=== PATIENT | female | born 1990 | race Caucasian/White ===

== ENCOUNTER 2022-09-30 17:36 | Emergency (ER) | payer BC, OTHER, SELFPAY ==
[2022-09-30 17:43] VITALS: BP 122/81; PULSE 87; RESP 18; O2SAT 97; BMI 28.2
[2022-09-30 18:00] VITALS: BP 121/81; PULSE 87; RESP 20; O2SAT 97; BMI 28.1
--- NOTE | 2022-09-30 18:46 | EXP.UTC ---
Discharge Plan Disposition Patient Disposition: Home, Self-Care Condition: Good Prescriptions Prescriptions: New Cortisporin-TC 3.3-3-10-0.5 mg/mL drops,suspension 4 drp otic (ear) TID 7 Days Qty: 10 0RF Rx Instructions: in affected ear No Action bupropion HCl 150 mg Tablet Sustained-Release 12 Hr 150 mg PO DAILY venlafaxine 75 mg Tablet 75 mg PO DAILY Referrals Follow up/Referrals: Provider,MD Raquel [Primary Care Provider] - See instructions Brendan Finch MD [Physician] - See instructions Roberto Navas MD [Physician] - See instructions Kennedy Curry III, MD [Staff Physician] - See instructions Activity Restrictions/Add. Instructions Additional Instructions/Restrictions: Use drops as prescribed FOllow up with Family Doctor or ENT if no improvement or any worsening of symptoms Return if needed Over the coutner Motrin and/or Tylenol as directed on package for pain Straight to ER if any life threatening symptoms Clinical Impressions Clinical Impression: Swimmer's ear Stand Alone Forms Stand Alone Forms: Work/School Release Instructions Patient Instructions: How to Instill Ear Drops, Otitis Externa, DI for Otitis Externa Discharge ED Provider: Sanam Nelson [facility] General Stated complaint: left ear pain Mode of Arrival: Ambulatory Source of Information: Patient Limitations: No Limitations Time Seen by Provider: 09/30/22 18:47 Description of Symptoms (Recalled from Triage Doc. by RN): ear pain water trapped in ear over 24 hours HEENT Symptoms (Recalled from RN notes): Yes Resp Symptoms (Recalled from RN notes): No Skin Symptoms (Recalled from RN notes): No MS Symptoms (Recalled from RN notes): No Functional Status (Recalled from RN notes): n/a History of Present Illness Provider Complaint: Patient states that she recently went swimming and feels like she may have water trapped in her ear States that she has been having pain in her left ear since she went swimming that has continued to get worse States that today her ear was hurting worse so she came in to get it checked Related Data Home Medications Medication Instructions Recorded Confirmed bupropion HCl 150 mg tablet,12 hr 150 mg PO DAILY Depression 09/30/22 09/30/22 sustained-release venlafaxine 75 mg tablet 75 mg PO DAILY Depression 09/30/22 09/30/22 Previous Rx's Medication Instructions Recorded njxjycbk-qcsjia-RO-thonzonm 3.3 4 drp otic (ear) TID 7 days #10 mL 09/30/22 mg-3 mg-10 mg-0.5 mg/mL ear drops,susp (Cortisporin-TC) Allergies Allergy/AdvReac Type Severity Reaction Status Date / Time No Known Allergies Allergy Verified 09/30/22 19:01 Worker's Comp Is this a Worker's Comp case?: No [facility] Disclaimer: The information contained in this section may have been updated after the patient was seen, as this information can be updated by other users. Social History Smoking Status: Unknown if ever smoked alcohol intake: never current occupational status: employed Travel in the last 8 weeks: None ROS Obtained: Yes All systems reviewed & no additional complaints except as documented and Yes Systems reviewed as appropriate & no additional complaints except as documented Constitutional Constitutional: Reports system reviewed and no additional complaints, except as documented and Reports as per HPI ENT Ears, Nose, Mouth, and Throat: Reports system reviewed and no additional complaints, except as documented, Reports as per HPI and Reports otalgia Cardiovascular Cardiovascular: Reports system reviewed and no additional complaints, except as documented and Reports as per HPI Respiratory Respiratory: Reports system reviewed and no additional complaints, except as documented and Reports as per HPI Gastrointestinal Gastrointestingal: Reports system reviewed and no additional complaints, except as documented and as per HPI Neurologic Neurologic: Reports system reviewed and no add
[2022-09-30 19:19] VITALS: BP 121/81; PULSE 87; RESP 20; TEMP 36.9; O2SAT 97
== END 2022-09-30 19:20 | disposition home or self-care (01) ==
PROVIDERS: Emergency Provider Nurse Practitioner
DX: H60.332 Swimmer's ear, left ear (principal)
CPT/HCPCS: 99212; 99213; G0463

== ENCOUNTER 2023-07-24 09:51 | Emergency (ER) | payer BC, OTHER, SELFPAY ==
[2023-07-24 10:05] VITALS: BP 106/66; PULSE 74; RESP 22; TEMP 37; O2SAT 96; BMI 29.0
--- NOTE | 2023-07-24 10:16 | EXP.UTC ---
Discharge Plan Disposition Patient Disposition: Home, Self-Care Condition: Good Prescriptions Prescriptions: New methylprednisolone [Medrol (Chris)] 4 mg tablets,dose pack See Rx Instructions .Route .COMPLEX 6 Days Qty: 21 0RF Rx Instructions: taper pack; amoxicillin-pot clavulanate 875-125 mg Tablet 1 tab PO Q12H Qty: 20 0RF guaifenesin [Mucinex] 600 mg tablet extended release 12hr 600 mg PO BID PRN (Reason: cough) Qty: 20 0RF No Action bupropion HCl 150 mg Tablet Sustained-Release 12 Hr 150 mg PO DAILY venlafaxine 75 mg Tablet 75 mg PO DAILY Cortisporin-TC 3.3-3-10-0.5 mg/mL drops,suspension 4 drp otic (ear) TID 7 Days Qty: 10 0RF Rx Instructions: in affected ear Referrals Follow up/Referrals: Provider,Referral, MD [Primary Care Provider] - See instructions Activity Restrictions/Add. Instructions Additional Instructions/Restrictions: *Monitor Temp, Over the counter Motrin or Tylenol as directed/as needed Tylenol every 4 hours and Motrin every 6 hours (as long as your family doctor has told you that you can take it) for fever or pain. and straight to ER if unable to lower temp less than 101.0 after medication given *Warm salt water gargles may help to soothe the throat *Throat Lozenges? *Warm fluids like tea with honey may help to soothe the throat? *Sleep elevated *Humidifier/Vaporizer *Take medication as prescribed Follow up IMMEDIATELY for new or worsening symptoms or no Noticeable improvement over the next 48-72 hours. 911 for difficulty breathing or swallowing Clinical Impressions Clinical Impression: Sinusitis Qualifiers: Sinusitis location: unspecified location Chronicity: unspecified Qualified Code(s): J32.9 - Chronic sinusitis, unspecified Instructions Patient Instructions: Sinusitis, DI for Sinusitis Discharge ED Provider: Sanam Nelson [facility] HPI General Stated complaint: congestion, sinus pressure Time Seen by Provider: 07/24/23 10:16 History of Present Illness Provider Complaint: Patient states that she has been having sinus pain and pressure for about 2 weeks now and now she is having pressure behind her eyes and even her teeth feel sore so today she came in to see if she could get something to help Related Data Home Medications Medication Instructions Recorded Confirmed bupropion HCl 150 mg tablet,12 hr 150 mg PO DAILY Depression 09/30/22 09/30/22 sustained-release venlafaxine 75 mg tablet 75 mg PO DAILY Depression 09/30/22 09/30/22 Previous Rx's Medication Instructions Recorded etlcgzic-gdwafx-MC-thonzonm 3.3 4 drp otic (ear) TID 7 days #10 mL 09/30/22 mg-3 mg-10 mg-0.5 mg/mL ear drops,susp (Cortisporin-TC) amoxicillin 875 mg-potassium 1 tab PO Q12H #20 tabs 07/24/23 clavulanate 125 mg tablet guaifenesin 600 mg tablet, 600 mg PO BID PRN cough #20 tabs 07/24/23 extended release 12 hr (Mucinex) methylprednisolone 4 mg tablets in See Rx Instructions .Route 07/24/23 a dose pack (Medrol (Chris)) .COMPLEX 6 days #21 tabs Allergies Allergy/AdvReac Type Severity Reaction Status Date / Time No Known Allergies Allergy Verified 09/30/22 19:01 [facility] Disclaimer: The information contained in this section may have been updated after the patient was seen, as this information can be updated by other users. Medical History (Updated 07/24/23 @ 10:20 by Sarah Pillai RN) Anxiety Depression Migraine Surgical History (Updated 07/24/23 @ 10:20 by Sarah Pillai RN) History of section History of tympanostomy tube placement Social History (Updated 09/30/22 @ 19:14 by Sanam Nelson APRN) Smoking Status: Unknown if ever smoked alcohol intake: never current occupational status: employed Travel in the last 8 weeks: None ROS Obtained: Yes All systems reviewed & no additional complaints except as documented and Yes Systems reviewed as appropriat
[2023-07-24 10:22] VITALS: BP 106/66; PULSE 74; RESP 22; TEMP 37; O2SAT 96
== END 2023-07-24 10:23 | disposition home or self-care (01) ==
PROVIDERS: Emergency Provider Nurse Practitioner
DX: J01.90 Acute sinusitis, unspecified (principal); R09.81 Nasal congestion
CPT/HCPCS: 99212; 99214; G0463

== ENCOUNTER 2023-08-11 08:15 | Emergency (ER) | payer BC, OTHER, SELFPAY ==
[2023-08-11 08:40] VITALS: BP 117/73; PULSE 77; RESP 21; TEMP 36.8; O2SAT 96; BMI 28.9
--- NOTE | 2023-08-11 08:46 | EXP.UTC ---
Discharge Plan Disposition Patient Disposition: Home, Self-Care Condition: Good Prescriptions Prescriptions: New amoxicillin [amoxicillin] 500 mg tablet 500 mg PO TID 10 Days Qty: 30 0RF No Action methylprednisolone [Medrol (Chris)] 4 mg tablets,dose pack See Rx Instructions .Route .COMPLEX 6 Days Qty: 21 0RF Rx Instructions: taper pack; amoxicillin-pot clavulanate 875-125 mg Tablet 1 tab PO Q12H Qty: 20 0RF guaifenesin [Mucinex] 600 mg tablet extended release 12hr 600 mg PO BID PRN (Reason: cough) Qty: 20 0RF trazodone 100 mg Tablet 100 mg PO DAILY sertraline 25 mg Tablet 25 mg PO DAILY sertraline 50 mg Tablet 50 mg PO DAILY Referrals Follow up/Referrals: Provider,Referral, MD [Primary Care Provider] - See instructions Activity Restrictions/Add. Instructions Additional Instructions/Restrictions: Drink plenty of fluids. Take tylenol or ibuprofen for pain or fever. Take the medications as directed. Follow up with your regular doctor. GO TO THE ER FOR ANY WORSENING SYMPTOMS Throw your tooth brush away and get a new one. Clinical Impressions Clinical Impression: Pharyngitis Stand Alone Forms Stand Alone Forms: Work/School Release Instructions Patient Instructions: DI for Strep Throat, Strep Throat Discharge ED Provider: Dalton Godoy [facility] [place] General Stated complaint: congestion, sore throat, body aches, eye drainage Time Seen by Provider: 08/11/23 08:45 History of Present Illness Provider Complaint: He states that he has had a very sore throat for the past 2 days. Related Data Home Medications Medication Instructions Recorded Confirmed sertraline 25 mg tablet 25 mg PO DAILY 07/24/23 07/24/23 sertraline 50 mg tablet 50 mg PO DAILY 07/24/23 07/24/23 trazodone 100 mg tablet 100 mg PO DAILY 07/24/23 07/24/23 Previous Rx's Medication Instructions Recorded amoxicillin 875 mg-potassium 1 tab PO Q12H #20 tabs 07/24/23 clavulanate 125 mg tablet guaifenesin 600 mg tablet, 600 mg PO BID PRN cough #20 tabs 07/24/23 extended release 12 hr (Mucinex) methylprednisolone 4 mg tablets in See Rx Instructions .Route 07/24/23 a dose pack (Medrol (Chris)) .COMPLEX 6 days #21 tabs amoxicillin 500 mg tablet 500 mg PO TID 10 days #30 tabs 08/11/23 Allergies Allergy/AdvReac Type Severity Reaction Status Date / Time No Known Allergies Allergy Verified 09/30/22 19:[address] [facility] Disclaimer: The information contained in this section may have been updated after the patient was seen, as this information can be updated by other users. Medical History (Updated 08/11/23 @ 08:51 by Dalton Godoy APRN) Anxiety Depression Migraine Surgical History (Updated 07/24/23 @ 10:20 by Sarah Pillai RN) History of section History of tympanostomy tube placement Social History (Updated 09/30/22 @ 19:14 by Sanam Nelson APRN) Smoking Status: Unknown if ever smoked alcohol intake: never current occupational status: employed Travel in the last 8 weeks: None ROS Obtained: Yes All systems reviewed & no additional complaints except as documented Constitutional Constitutional: Reports chills and Reports fever(s) Eyes Eyes: Denies eye discharge ENT Ears, Nose, Mouth, and Throat: Reports as per HPI Cardiovascular Cardiovascular: Denies chest pain Respiratory Respiratory: Denies chest congestion and Reports cough Gastrointestinal Gastrointestingal: Reports nausea; Denies abdominal pain, constipation, cramping, diarrhea or vomiting Musculoskeletal Musculoskeletal: Denies arthralgias Integumentary/Breasts Skin/Breast: Denies rash Neurologic Neurologic: Denies paresthesias Physical Exam General General appearance: alert and in no apparent distress Head Head exam: atraumatic, normocephalic and normal inspection Eye Eye exam: Present normal appearance, PERRL and EOMI ENT ENT exam: Present normal exam, normal oropharyn
[2023-08-11 08:57] LABS: UTC Strep Screen (Rapid) Negative (Negative)
[2023-08-11 09:13] VITALS: BP 117/73; PULSE 77; RESP 21; TEMP 36.8; O2SAT 96
== END 2023-08-11 09:17 | disposition home or self-care (01) ==
PROVIDERS: Emergency Provider Nurse Practitioner Family
DX: J02.9 Acute pharyngitis, unspecified (principal); R50.9 Fever, unspecified; R05.9 Cough, unspecified; R09.81 Nasal congestion
CPT/HCPCS: 87880; 99212; 99214; G0463

== ENCOUNTER 2024-05-24 09:38 | Emergency (ER) | payer OTHER, BC, SELFPAY ==
[2024-05-24 09:50] VITALS: BP 108/65; PULSE 71; RESP 20; TEMP 36.6; O2SAT 99; BMI 30.8
--- NOTE | 2024-05-24 09:55 | ED_ITS ---
Discharge Plan Disposition Patient Disposition: Home, Self-Care Condition: Good Prescriptions Prescriptions: New benzonatate 100 mg capsule 100 mg PO TID PRN (Reason: cough) Qty: 30 0RF methylprednisolone [Medrol (Chris)] 4 mg tablets,dose pack See Rx Instructions .Route .COMPLEX 6 Days Qty: 21 0RF Rx Instructions: taper pack; amoxicillin-pot clavulanate 875-125 mg Tablet 1 tab PO Q12H Qty: 20 0RF guaifenesin [Mucinex] 600 mg tablet extended release 12hr 600 - 1,200 mg PO BID PRN (Reason: cough) Qty: 20 0RF No Action trazodone 100 mg Tablet 100 mg PO DAILY sertraline 50 mg Tablet 150 mg PO DAILY Referrals Follow up/Referrals: Provider,Referral, MD [Primary Care Provider] - See instructions Activity Restrictions/Add. Instructions Additional Instructions/Restrictions: Take medication as prescribed Make sure to drink plenty of fluids Follow up with your Family Doctor if needed Straight to ER if any life threatening symptoms Clinical Impressions Clinical Impression: Sinusitis Instructions Patient Instructions: DI for Sinusitis, Sinusitis Print Language Print Language: Guamanian Discharge ED Provider: Sanam Nelson [facility] [place] HPI General Stated complaint: poss sinus infection Mode of Arrival: Ambulatory Source of Information: Patient Limitations: No Limitations Time Seen by Provider: 05/24/24 09:55 Description of Symptoms (Recalled from Triage Doc. by RN): PATIENT C/O COUGH, EYE DRAINAGE, RUNNY NOSE, SINUS PRESSURE/PAIN, AND GREEN MUCOUS X 1 WEEK HEENT Symptoms (Recalled from RN notes): Yes Resp Symptoms (Recalled from RN notes): Yes Skin Symptoms (Recalled from RN notes): No MS Symptoms (Recalled from RN notes): No Functional Status (Recalled from RN notes): WNL History of Present Illness Provider Complaint: Patient states for the last week she has been having sinus pain and pressure, mucous now becoming thick yellowish green and having pressure behind her eyes so today when it wasnt any better she came in to get checked Related Data Home Medications ?Medication ?Instructions ?Recorded ?Confirmed sertraline 50 mg tablet 150 mg PO DAILY 07/24/23 05/24/24 trazodone 100 mg tablet 100 mg PO DAILY 07/24/23 05/24/24 Previous Rx's ?Medication ?Instructions ?Recorded amoxicillin 875 mg-potassium 1 tab PO Q12H #20 tabs 05/24/24 clavulanate 125 mg tablet benzonatate 100 mg capsule 100 mg PO TID PRN cough #30 caps 05/24/24 guaifenesin 600 mg tablet, 600 - 1,200 mg (1 - 2 x 600 mg) PO 05/24/24 extended release 12 hr (Mucinex) BID PRN cough #20 tabs methylprednisolone 4 mg tablets in See Rx Instructions .Route 05/24/24 a dose pack (Medrol (Chris)) .COMPLEX 6 days #21 tabs Allergies Allergy/AdvReac Type Severity Reaction Status Date / Time Opioids - Morphine Analogues Allergy Unknown Verified 05/24/24 09:56 allergy reaction Opioids-Meperidine and Allergy Unknown Verified 05/24/24 09:56 Related allergy reaction Opioids-Methadone and Related Allergy Unknown Verified 05/24/24 09:56 allergy reaction Worker's Comp Is this a Worker's Comp case?: No [facility] Disclaimer: The information contained in this section may have been updated after the patient was seen, as this information can be updated by other users. Medical History (Updated 05/24/24 @ 09:59 by Sanam Nelson APRN) Depression Anxiety Migraine Surgical History (Updated 07/24/23 @ 10:20 by Sarah Pillai RN) History of tympanostomy tube placement History of section Social History (Updated 09/30/22 @ 19:14 by Sanam Nelson APRN) Smoking Status: Unknown if ever smoked alcohol intake: never current occupational status: employed Travel in the last 8 weeks: None ROS Obtained: Yes All systems reviewed & no additional complaints except as documented and Yes Systems reviewed as appropriate & no additional complaints except as documented Constitutional Constitutional: Reports system reviewed and no additional complaints, except as documented, Reports as per HPI and Reports headache(s) Eyes Eyes: Reports system reviewed and no additional complaints, except as documented, Reports as per HPI and Reports eye discharge (last week) ENT Ears, Nose, Mouth, and Throat: Reports system reviewed and no additional complaints, except as documented, Reports as per HPI, Reports headache(s), Reports sinus pain and Reports sinus pressure Cardiovascular Cardiovascular: Reports system reviewed and no additional complaints, except as documented and Reports as per HPI Respiratory Respiratory: Reports system reviewed and no additional complaints, except as documented, Reports as per HPI and Reports cough Gastrointestinal Gastrointestingal: Reports system reviewed and no additional complaints, except as documented and as per HPI Neurologic Neurologic: Reports headache(s) Physical Exam General General appearance: alert and in no apparent distress ENT ENT exam: Present mucous membranes moist Expanded ENT Exam Nose exam: Present sinus tenderness (reports thick yellowish green mucous and pressure behind eyes) Throat exam: Present other (PND noted) Respiratory Respiratory exam: Present normal lung sounds bilaterally; Absent respiratory distress or wheezes Cardiovascular Cardiovascular exam: Present regular rate, normal rhythm and normal heart sounds Abdominal Exam Abdominal exam: Present soft and normal bowel sounds; Absent distention or tenderness Neurological Exam Neurological exam: Present alert, oriented X3 and normal gait Medical Decision Making Medical Records Screening: Per USPSTF and CDC recommendations, given the prevalence of disease in our region, it is our hospital?s policy to screen for HIV and viral Hepatitis for all patients aged 18 and over and those with ongoing risk factors. Gregor Inquiry Pt receiving controlled substance: No Gregor was queried for this patient: No Vital Signs: 05/24/24 09:50 Temperature 97.9 F Temperature Source Oral Pulse Rate [Left Brachial] 71 Respiratory Rate 20 Blood Pressure [Left Arm] 108/65 L Blood Pressure Mean [Left Arm] 79 Blood Pressure Source [Left Arm] Automatic Cuff Blood Pressure Position [Left Arm] Sitting 02 Sat by Pulse Oximetry 99 Oxygen Delivery Method Room Air
[2024-05-24 10:01] VITALS: BP 108/65; PULSE 71; RESP 20; TEMP 36.6; O2SAT 99
== END 2024-05-24 10:04 | disposition home or self-care (01) ==
PROVIDERS: Emergency Provider Nurse Practitioner
DX: J01.90 Acute sinusitis, unspecified (principal); R05.9 Cough, unspecified
CPT/HCPCS: 99212; 99214; G0463

== ENCOUNTER 2024-07-24 09:20 | Emergency (ER) | payer OTHER, BC, SELFPAY ==
[2024-07-24 10:33] VITALS: BP 111/73; PULSE 70; RESP 18; TEMP 36.6; O2SAT 70; BMI 29.0
--- NOTE | 2024-07-24 10:33 | ED_ITS ---
Discharge Plan Disposition Patient Disposition: Home, Self-Care Condition: Good Prescriptions Prescriptions: New azithromycin [Zithromax] 250 mg tablet 250 mg PO UD DOSE PK Qty: 6 0RF Rx Instructions: Take two (2) tablets today, then one (1) tablet days #2 thru #5 methylprednisolone 4 mg Tablets,Dose Pack 4 mg PO DIRECTED 6 Days Qty: 21 0RF Rx Instructions: Take 1 pack as directed for 6 days ofbacmbkhzliykc-atfokjobn-HE [Bromfed DM] 2-30-10 mg/5 mL Syrup 5 ml PO Q6H PRN (Reason: Cough) Qty: 240 0RF No Action trazodone 100 mg Tablet 100 mg PO DAILY sertraline 50 mg Tablet 150 mg PO DAILY Referrals Follow up/Referrals: Provider,Referral, MD [Primary Care Provider] - See instructions Activity Restrictions/Add. Instructions Additional Instructions/Restrictions: Drink plenty of fluids. Take tylenol or ibuprofen for pain or fever. Take the medications as directed. Follow up with your regular doctor. GO TO THE ER FOR ANY WORSENING SYMPTOMS Clinical Impressions Clinical Impression: Sinusitis Qualifiers: Sinusitis location: unspecified location Chronicity: unspecified Qualified Code(s): J32.9 - Chronic sinusitis, unspecified Instructions Patient Instructions: Sinusitis, DI for Sinusitis Print Language Print Language: Tamazight Discharge ED Provider: Dalton Godoy [facility] General Stated complaint: sinus pressure, congestion Time Seen by Provider: 07/24/24 10:33 Related Data Home Medications ?Medication ?Instructions ?Recorded ?Confirmed sertraline 50 mg tablet 150 mg PO DAILY 07/24/23 07/24/24 trazodone 100 mg tablet 100 mg PO DAILY 07/24/23 07/24/24 Previous Rx's ?Medication ?Instructions ?Recorded azithromycin 250 mg tablet 250 mg PO UD DOSE PK #6 tabs 07/24/24 (Zithromax) gaspsipudrxjmtj-lilwjufgcakaewk-OQ 5 ml PO Q6H PRN Cough #240 mL 07/24/24 2 mg-30 mg-10 mg/5 mL oral syrup (Bromfed DM) methylprednisolone 4 mg tablets in 4 mg PO DIRECTED 6 days #21 tabs 07/24/24 a dose pack Allergies Allergy/AdvReac Type Severity Reaction Status Date / Time Opioids - Morphine Analogues Allergy Unknown Verified 05/24/24 09:56 allergy reaction Opioids-Meperidine and Allergy Unknown Verified 05/24/24 09:56 Related allergy reaction Opioids-Methadone and Related Allergy Unknown Verified 05/24/24 09:56 allergy reaction PFSH [facility] Disclaimer: The information contained in this section may have been updated after the patient was seen, as this information can be updated by other users. Medical History (Updated 07/24/24 @ 10:37 by Dalton Godoy APRN) Depression Anxiety Migraine Surgical History (Updated 07/24/23 @ 10:20 by Sarah Pillai RN) History of tympanostomy tube placement History of section Social History (Updated 09/30/22 @ 19:14 by Sanam Nelson APRN) Smoking Status: Unknown if ever smoked alcohol intake: never current occupational status: employed ROS Obtained: Yes All systems reviewed & no additional complaints except as documented Constitutional Constitutional: Reports poor appetite Eyes Eyes: Reports system reviewed and no additional complaints, except as documented ENT Ears, Nose, Mouth, and Throat: Reports as per HPI Cardiovascular Cardiovascular: Reports system reviewed and no additional complaints, except as documented and Denies chest pain Respiratory Respiratory: Denies shortness of breath, Denies chest congestion, Reports cough, Denies stridor and Denies wheezing Gastrointestinal Gastrointestingal: Reports system reviewed and no additional complaints, except as documented; Denies abdominal pain, diarrhea or vomiting Musculoskeletal Musculoskeletal: Reports system reviewed and no additional complaints, except as documented and Denies arthralgias Integumentary/Breasts Skin/Breast: Reports system reviewed and no additional complaints, except as documented and Denies rash Neurologic Neurologic: Denies paresthesias Allergic/Immunologic Allergic/Immunologic: Denies wheezing Physical Exam General General appearance: alert and in no apparent distress Eye Eye exam: Present normal appearance, PERRL and EOMI ENT ENT exam: Present mucous membranes moist and normal external ear exam Expanded ENT Exam External ear exam: Present normal external inspection TM/Canal exam: Bilateral TM: erythema and bulging Nose exam: Absent sinus tenderness Nasal speculum exam: Bilateral: normal Mouth exam: Present normal external inspection; Absent drooling Teeth exam: Present normal inspection Throat exam: Present tonsillar erythema and tonsillomegaly Neck Neck exam: Present normal inspection, full ROM and trachea midline; Absent tenderness, lymphadenopathy or thyromegaly Chest Chest inspection: Present normal inspection and symmetric chest wall rise; Absent tenderness or rash Respiratory Respiratory exam: Present normal lung sounds bilaterally; Absent respiratory distress, wheezes, stridor or accessory muscle use Cardiovascular Cardiovascular exam: Present regular rate, normal rhythm and normal heart sounds Abdominal Exam Abdominal exam: Present soft; Absent distention, tenderness, guarding, rebound or rigidity Extremities Exam Extremities exam: Present normal inspection, full ROM and normal capillary refill; Absent tenderness or calf tenderness Back Exam Back exam: Present normal inspection and full ROM; Absent tenderness Neurological Exam Neurological exam: Present alert and oriented X3 Psychiatric Psychiatric exam: Present normal affect and normal mood Skin Skin exam: Present warm, dry, intact and normal color Lymphatic Lymphatic Findings: no adenopathy Medical Decision Making Medical Records Medical records reviewed: No I reviewed the patient's medical records. Screening: Per USPSTF and CDC recommendations, given the prevalence of disease in our region, it is our hospital?s policy to screen for HIV and viral Hepatitis for all patients aged 18 and over and those with ongoing risk factors. Gregor Inquiry Pt receiving controlled substance: No
[2024-07-24] MEDS: DEXAMETHASONE 4MG/ML 1ML VIAL 8 MG IM (10:49)
[2024-07-24 11:05] VITALS: BP 111/73; PULSE 70; RESP 18; TEMP 36.6
== END 2024-07-24 11:06 | disposition home or self-care (01) ==
PROVIDERS: Emergency Provider Nurse Practitioner Family
DX: J32.9 Chronic sinusitis, unspecified (principal)
CPT/HCPCS: 96372; 99213; G0381; J1100